=== PATIENT | male | born 1970 | race Caucasian/White ===

== ENCOUNTER 2023-09-15 15:47 | Emergency (ER) | payer OTHER ==
[2023-09-15] MEDS ORDERED: Boostrix 0.5 ML (Tdap) VIAL (>/=7 yrs of age) ONE (16:02)
[2023-09-15] MEDS ORDERED: Lidocaine 1% (PF) 30 ML VIAL ONE (16:06)
== END 2023-09-15 16:44 ==
LOC: EEVIPCON 15:47 → NAV ERS 15:47
DX: S61.411A Laceration without foreign body of right hand, initial encounter (principal); Z23 Encounter for immunization; W26.8XXA Contact with other sharp object(s), not elsewhere classified, initial encounter
CPT/HCPCS: 12002; 90471; 90715; J2001